=== PATIENT | male | born 1995 | race Two or more races ===

== ENCOUNTER 2021-05-02 20:32 | Emergency (ER) | payer MEDICAID ==
[~2021-05-02] VITALS: Ht 188 cm; Wt 129.6 kg
[2021-05-02 20:52] VITALS: BP 121/69
== END 2021-05-02 23:04 | disposition left against medical advice (07) ==
LOC: ER 20:33
DX: R10.9 Unspecified abdominal pain (principal); Z53.21 Procedure and treatment not carried out due to patient leaving prior to being seen by health care provider

== ENCOUNTER 2022-08-11 05:01 | Emergency (ER) | payer MEDICAID ==
[~2022-08-11] VITALS: Ht 188 cm; Wt 136.4 kg
[2022-08-11 05:10] VITALS: BP 149/95
== END 2022-08-11 10:03 | disposition left against medical advice (07) ==
LOC: ER 05:03
DX: K08.89 Other specified disorders of teeth and supporting structures (principal); Z53.21 Procedure and treatment not carried out due to patient leaving prior to being seen by health care provider

== ENCOUNTER 2022-09-19 03:12 | Emergency (ER) | payer MEDICAID ==
[~2022-09-19] VITALS: Ht 188 cm; Wt 145.0 kg
[2022-09-19 03:21] VITALS: BP 125/98
[2022-09-19] MEDS ORDERED: HYDR-3965 PO (04:10)
[2022-09-19] MEDS ORDERED: AMOX-117 PO (04:10)
== END 2022-09-19 05:07 | disposition home or self-care (01) ==
LOC: ER 03:14
DX: K08.89 Other specified disorders of teeth and supporting structures (principal); K02.9 Dental caries, unspecified; Z79.899 Other long term (current) drug therapy
CPT/HCPCS: 99283

== ENCOUNTER 2023-05-04 02:05 | Emergency (ER) | payer MEDICAID ==
[~2023-05-04] VITALS: Ht 188 cm; Wt 140.9 kg
[2023-05-04 02:17] VITALS: BP 133/107
[2023-05-04] MEDS ORDERED: ibuprofen tablet 400 MG TABLET PO ONE (02:50)
[2023-05-04] MEDS ORDERED: IBUP-1984 PO (02:50)
[2023-05-04] MEDS ORDERED: AMOX-117 PO (02:50)
== END 2023-05-04 03:03 | disposition home or self-care (01) ==
LOC: ER 02:05
DX: K08.89 Other specified disorders of teeth and supporting structures (principal); Z79.899 Other long term (current) drug therapy
CPT/HCPCS: 99283

== ENCOUNTER 2023-12-28 13:59 | Emergency (ER) | payer MEDICAID ==
[~2023-12-28] VITALS: Ht 190.5 cm; Wt 156.2 kg
[2023-12-28 14:06] VITALS: BP 145/94; PULSE 73; RESP 15; TEMP 97.8; O2SAT 98
[2023-12-28 14:45] LABS: BASOPHILS # (AUTO) 0.1 X10'3 (0-0.2); EOSINOPHILS # (AUTO) 0.2 X10'3 (0-0.9); EOSINOPHILS % (AUTO) 1.7 % (0-6); HEMATOCRIT 46.6 % (42.0-52.0); HEMOGLOBIN 15.3 g/dl (14.0-17.9); LYMPHOCYTES # (AUTO) 2.6 X10'3 (1.1-4.8); LYMPHOCYTES % (AUTO) 28.9 % (21-51); MEAN CORPUSCULAR HEMOGLOBIN 27.5 PG (27.0-31.0); MEAN CORPUSCULAR HGB CONC 32.8 g/dL (33.0-36.5); MEAN CORPUSCULAR VOLUME 83.8 FL (78-98); MEAN PLATELET VOLUME 8.6 FL (7.4-10.4); MONOCYTES # (AUTO) 0.6 X10'3 (0-0.9); MONOCYTES % (AUTO) 6.3 % (2-12); NEUTROPHILS # (AUTO) 5.6 X10'3 (1.8-7.7); NEUTROPHILS % (AUTO) 62.1 % (42-75); PLATELET COUNT 336 X10'3 (140-440); RED BLOOD COUNT 5.55 X10'6 (4.70-6.10); RED CELL DISTRIBUTION WIDTH 14.9 % (11.5-14.5)
[2023-12-28 14:56] LABS: ALANINE AMINOTRANSFERASE 26 U/L (12-78); ALBUMIN 3.4 G/DL (3.4-5.0); ALBUMIN/GLOBULIN RATIO 0.9 (1.1-1.5); ALKALINE PHOSPHATASE 106 IU/L (46-116); ANION GAP 9 (8-16); ASPARTATE AMINO TRANSFERASE 21 U/L (10-37); BILIRUBIN,TOTAL 0.4 MG/DL (0.1-1.0); BLOOD UREA NITROGEN 7 MG/DL (7-18); BUN/CREATININE RATIO 7.2 (10.0-20.0); CALCIUM 8.2 MG/DL (8.5-10.1); CHLORIDE 107 MMOL/L (99-107); CREATININE 0.97 MG/DL (0.60-1.10); GLUCOSE 83 MG/DL (70-104); SODIUM 142 MMOL/L (135-145); TOTAL CARBON DIOXIDE 25.6 MMOL/L (24-32); TOTAL PROTEIN 7.1 G/DL (6.4-8.2); eCRCL 133 ML/MIN; eGFR > 90 ML/MIN
[2023-12-28 15:12] LABS: BILIRUBIN,DIRECT 0.1 MG/DL (0-0.3); LIPASE 23 U/L (16-77); PRO BRAIN NATRIURETIC PEPTIDE < 30 PG/ML (0-125)
[2023-12-28] MEDS: dicyclomine 10 MG capsule PO ONE (15:12)
[2023-12-28] MEDS: mag hydrox/Alum hydrox/simeth 30ml oral suspension PO ONE (15:12)
[2023-12-28] MEDS: LIDOcaine Viscous 15ml cup MM PRN (15:13)
[2023-12-28] MEDS ORDERED: DICY10CA88 PO (16:03)
[2023-12-28] MEDS ORDERED: ONDA4TAB12 PO (16:03)
== END 2023-12-28 16:14 | disposition home or self-care (01) ==
LOC: ER 14:00
DX: R07.89 Other chest pain (principal); R10.13 Epigastric pain; R10.10 Upper abdominal pain, unspecified; R10.30 Lower abdominal pain, unspecified; Z79.899 Other long term (current) drug therapy
CPT/HCPCS: 36415; 71045; 76700; 80048; 80076; 83690; 83880; 84484; 85025; 93005; 99285

== ENCOUNTER 2024-01-26 08:24 | Emergency (ER) | payer MEDICAID ==
[~2024-01-26] VITALS: Ht 190.5 cm; Wt 151.0 kg
[~2024-01-26 08:24] MED LIST: ONDA4TAB12 PO
[2024-01-26 08:29] VITALS: BP 151/93; PULSE 74; RESP 18; TEMP 97.8; O2SAT 96
== END 2024-01-26 11:53 | disposition left against medical advice (07) ==
LOC: ER 08:25
DX: R51.9 Headache, unspecified (principal); Z53.21 Procedure and treatment not carried out due to patient leaving prior to being seen by health care provider
CPT/HCPCS: 99281